=== PATIENT | female | born 1955 | race Caucasian/White ===

== ENCOUNTER → 2017-12-01 | Outpatient (CLI) | payer OTHER | LOC: RAD 14:35 | DX: S93.402A Sprain of unspecified ligament of left ankle, initial encounter (principal) ==

== ENCOUNTER → 2018-01-22 | Outpatient (CLI) | payer OTHER | LOC: MAMMO 09:15 | DX: Z12.31 Encounter for screening mammogram for malignant neoplasm of breast (principal); R92.1 Mammographic calcification found on diagnostic imaging of breast; Z98.890 Other specified postprocedural states ==

== ENCOUNTER → 2018-02-14 | Outpatient (CLI) | payer MEDICARE | LOC: RAD 16:34 | DX: I07.1 Rheumatic tricuspid insufficiency (principal); I27.0 Primary pulmonary hypertension ==

== ENCOUNTER 2018-05-19 13:55 | Emergency (ER) | payer MEDICARE, OTHER ==
[~2018-05-19] VITALS: Ht 165.1 cm; Wt 63.6 kg
[2018-05-19 14:44] LABS: HEMATOCRIT 38.2 % (37.0-47.0); MEAN CELL VOLUME 88 fl (78-100); MEAN CORPUSCULAR HEMOGLOBIN 30 pg (27-31); MEAN CORPUSCULAR HGB CONC 34 g/dL (33-37); MEAN PLATELET VOLUME 11.2 fl (7.4-10.4); PLATELET COUNT 263 K/mm3 (130-400); RED BLOOD COUNT 4.36 M/mm3 (4.10-5.30); RED CELL DISTRIBUTION WIDTH 13.1 % (11.5-14.5); WHITE BLOOD COUNT 15.9 K/mm3 (4.8-10.8)
[2018-05-19] MEDS ORDERED: METOPROLOL SUC100 M1 PO (14:45)
[2018-05-19] MEDS ORDERED: AMLODIPINE BESYL5 MG PO (14:45)
[2018-05-19] MEDS ORDERED: APRESOLINE 25MG25 MG PO (14:45)
[2018-05-19] MEDS ORDERED: PANTOPRAZOLE SO40 MG PO (14:46)
[2018-05-19] MEDS ORDERED: ATORVASTATIN CA40 MG PO (14:46)
[2018-05-19] MEDS ORDERED: SERTRALINE HYD100 MG PO (14:46)
[2018-05-19] MEDS ORDERED: ASPIRIN ADULT L81 M3 PO (14:47)
[2018-05-19 15:09] LABS: CALCIUM 9.3 mg/dL (8.4-10.2)
[2018-05-19 15:14] LABS: NEUTROPHILS 87 % (42-75); POTASSIUM 3.4 mmol/L (3.6-5.0)
[2018-05-19 15:15] LABS: LYMPHOCYTE 4 % (20-51); MONOCYTE 8 % (3-10)
[2018-05-19] MEDS ORDERED: PREDNISONE20 M1 PO (15:52)
[2018-05-19] MEDS ORDERED: POTASSIUM CHLO10 ME7 PO (15:52)
[2018-05-19] MEDS ORDERED: ZITHROMAX 250M250 MG PO (15:52)
[2018-05-19] MEDS ORDERED: GUAIFEN-CODEINE5 ML PO (15:52)
[2018-05-19 15:57] VITALS: BP 168/98
== END 2018-05-19 16:04 | disposition home or self-care (01) ==
LOC: ED 13:55
PROVIDERS: Family Medicine
DX: J44.1 Chronic obstructive pulmonary disease with (acute) exacerbation (principal); E87.6 Hypokalemia; I12.9 Hypertensive chronic kidney disease with stage 1 through stage 4 chronic kidney disease, or unspecified chronic kidney disease; N18.9 Chronic kidney disease, unspecified; F17.200 Nicotine dependence, unspecified, uncomplicated; Z79.899 Other long term (current) drug therapy; Z91.19 Patient's noncompliance with other medical treatment and regimen; K21.9 Gastro-esophageal reflux disease without esophagitis
CPT/HCPCS: J7512

== ENCOUNTER 2019-05-11 10:47 | Emergency (ER) | payer MEDICARE, OTHER ==
[~2019-05-11] VITALS: Ht 165.1 cm; Wt 69.1 kg
[~2019-05-11 10:47] MED LIST: AMLODIPINE BESYL5 MG PO; APRESOLINE 25MG25 MG PO; ASPIRIN ADULT L81 M3 PO; ATORVASTATIN CA40 MG PO; GUAIFEN-CODEINE5 ML PO; METOPROLOL SUC100 M1 PO; PANTOPRAZOLE SO40 MG PO; POTASSIUM CHLO10 ME7 PO; PREDNISONE20 M1 PO; SERTRALINE HYD100 MG PO; ZITHROMAX 250M250 MG PO
[2019-05-11] MEDS ORDERED: HYDROXYZINE HCL25 M1 PO (10:58)
[2019-05-11 12:06] VITALS: BP 149/88
[2019-05-11] MEDS ORDERED: NORCO 7.5-3251 EACH PO (12:31)
== END 2019-05-11 12:40 | disposition home or self-care (01) ==
LOC: ED 10:47
DX: S52.572A Other intraarticular fracture of lower end of left radius, initial encounter for closed fracture (principal); I10 Essential (primary) hypertension; F32.9 Major depressive disorder, single episode, unspecified; E78.5 Hyperlipidemia, unspecified; W19.XXXA Unspecified fall, initial encounter
CPT/HCPCS: J2270

== ENCOUNTER 2019-11-24 17:15 | Emergency (ER) | payer MEDICARE, OTHER ==
[~2019-11-24] VITALS: Ht 165.1 cm; Wt 70.3 kg
[~2019-11-24 17:15] MED LIST changes: +HYDROXYZINE HCL25 M1 PO; +NORCO 7.5-3251 EACH PO
[2019-11-24] MEDS ORDERED: ZOLOFT 100MG100 MG PO (17:43)
[2019-11-24] MEDS ORDERED: ASPIRIN 32325 MG/TAB PO (17:46)
[2019-11-24] MEDS ORDERED: KLONOPIN 1MG1 MG PO (17:46)
[2019-11-24 19:22] VITALS: BP 180/92
== END 2019-11-24 19:22 | disposition home or self-care (01) ==
LOC: ED 17:15
DX: M79.18 Myalgia, other site (principal); M54.10 Radiculopathy, site unspecified; I10 Essential (primary) hypertension; F41.9 Anxiety disorder, unspecified; K21.9 Gastro-esophageal reflux disease without esophagitis; F17.210 Nicotine dependence, cigarettes, uncomplicated; Z79.82 Long term (current) use of aspirin
CPT/HCPCS: J3301; J3360

== ENCOUNTER → 2020-09-21 | Outpatient (CLI) | payer MEDICARE, OTHER ==
[~2020-09-21] MED LIST changes: +ASPIRIN 32325 MG/TAB PO; +FIORICET 325 MG1 TAB PO; +KLONOPIN 1MG1 MG PO; +ZOLOFT 100MG100 MG PO
== END | disposition still patient (30) ==
LOC: PT 07:55
DX: M25.512 Pain in left shoulder (principal)

== ENCOUNTER 2020-10-01 10:41 | Outpatient (RCR) | payer MEDICARE, OTHER ==
[~2020-10-01 10:41] MED LIST changes: -FIORICET 325 MG1 TAB PO
== END 2020-12-30 | disposition home or self-care (01) ==
LOC: PT
DX: Z96.611 Presence of right artificial shoulder joint (principal)

== ENCOUNTER 2021-02-03 10:54 | Outpatient (RCR) | payer MEDICARE, OTHER ==
[2021-03-05] MEDS ORDERED: FIORICET 325 MG1 TAB PO (12:01)
== END 2021-05-04 | disposition home or self-care (01) ==
LOC: PT
DX: M48.061 Spinal stenosis, lumbar region without neurogenic claudication (principal)

== ENCOUNTER 2021-03-05 11:00 | Emergency (ER) | payer MEDICARE, OTHER ==
[~2021-03-05] VITALS: Ht 162.6 cm; Wt 72.6 kg
[2021-03-05] MEDS ORDERED: FIORICET 325 MG1 TAB PO (12:01)
[2021-03-05 12:26] VITALS: BP 152/83
== END 2021-03-05 12:26 | disposition home or self-care (01) ==
LOC: ED 11:00
DX: G97.1 Other reaction to spinal and lumbar puncture (principal); R51.9 Headache, unspecified; N18.9 Chronic kidney disease, unspecified; F17.210 Nicotine dependence, cigarettes, uncomplicated; Z86.69 Personal history of other diseases of the nervous system and sense organs; Z88.6 Allergy status to analgesic agent; Z79.1 Long term (current) use of non-steroidal anti-inflammatories (NSAID)

== ENCOUNTER → 2021-06-11 | Outpatient (CLI) | payer MEDICARE, OTHER ==
[~2021-06-11] MED LIST changes: +FIORICET 325 MG1 TAB PO
== END ==
LOC: RAD 11:12
DX: M25.532 Pain in left wrist (principal); W19.XXXA Unspecified fall, initial encounter

== ENCOUNTER 2021-07-28 10:44 | Outpatient (RCR) | payer MEDICARE, OTHER | END 2021-08-25 14:15 | disposition home or self-care (01) | LOC: OT 10:44 | DX: S52.572D Other intraarticular fracture of lower end of left radius, subsequent encounter for closed fracture with routine healing (principal); X58.XXXD Exposure to other specified factors, subsequent encounter ==

== ENCOUNTER 2021-11-21 09:41 | Emergency (ER) | payer MEDICARE, OTHER ==
[~2021-11-21] VITALS: Ht 165.1 cm; Wt 72.6 kg
[2021-11-21] MEDS ORDERED: METOPROLOL SUCC50 M1 PO (11:47)
[2021-11-21] MEDS ORDERED: PERCOCET 325 MG1 TA3 PO (12:11)
[2021-11-21 12:18] VITALS: BP 177/102
== END 2021-11-21 12:18 | disposition home or self-care (01) ==
LOC: ED 09:41
DX: S32.028A Other fracture of second lumbar vertebra, initial encounter for closed fracture (principal); F17.210 Nicotine dependence, cigarettes, uncomplicated; Z28.310 Unvaccinated for COVID-19; W01.0XXA Fall on same level from slipping, tripping and stumbling without subsequent striking against object, initial encounter

== ENCOUNTER 2021-12-27 10:58 | Emergency (ER) | payer MEDICARE, OTHER ==
[~2021-12-27] VITALS: Ht 160 cm; Wt 64.2 kg
[~2021-12-27 10:58] MED LIST changes: +METOPROLOL SUCC50 M1 PO; +PERCOCET 325 MG1 TA3 PO
[2021-12-27] MEDS ORDERED: OXYCODONE-ACET1 EAC1 PO (11:36)
[2021-12-27 11:51] LABS: BASO # 0.01 K/mm3 (0.02-0.10); EOS # 0.01 K/mm3 (0.04-0.40); EOS % 0.2 % (1.0-5.0); HEMOGLOBIN 15.7 g/dL (12.5-16.0); LYMPH# 0.62 K/mm3 (1.50-4.00); MEAN CELL VOLUME 91 fl (78-100); MEAN CORPUSCULAR HEMOGLOBIN 30 pg (27-31); MEAN CORPUSCULAR HGB CONC 33 g/dL (33-37); MEAN PLATELET VOLUME 11.4 fl (7.4-10.4); MONO # 0.43 K/mm3 (0.20-0.80); PLATELET COUNT 125 K/mm3 (130-400); RED CELL DISTRIBUTION WIDTH 12.8 % (11.5-14.5)
[2021-12-27 11:57] LABS: ALBUMIN 4.4 g/dL (3.4-4.8)
[2021-12-27 11:58] LABS: CALCIUM 9.5 mg/dL (8.3-10.5)
[2021-12-27 12:00] LABS: TOTAL PROTEIN 7.5 g/dL (6.2-8.1)
[2021-12-27 12:01] LABS: TOTAL BILIRUBIN 0.5 mg/dL (0.2-1.2)
[2021-12-27] MEDS ORDERED: ZOFRAN ODT4 MG PO (12:42)
[2021-12-27 13:32] LABS: URINE APPEARANCE HAZY; URINE COLOR YELLOW; URINE GLUCOSE NEGATIVE (NEGATIVE); URINE PROTEIN(semi-quant) 3+ (NEGATIVE)
[2021-12-27 13:33] LABS: URINE BILIRUBIN 2+ (NEGATIVE); URINE BLOOD 50 ery/uL (NEGATIVE); URINE KETONE NEGATIVE (NEGATIVE); URINE LEUKOCYTE ESTERASE NEGATIVE (NEGATIVE); URINE NITRATE NEGATIVE (NEGATIVE); URINE UROBILINOGEN NORMAL (NORMAL); URINE WBC 0-1 /hpf (0-3)
[2021-12-27 14:00] VITALS: BP 124/78
== END 2021-12-27 14:00 | disposition home or self-care (01) ==
LOC: ED 10:58
PROVIDERS: Physician Assistant
DX: U07.1 COVID-19 (principal); J44.9 Chronic obstructive pulmonary disease, unspecified; I12.9 Hypertensive chronic kidney disease with stage 1 through stage 4 chronic kidney disease, or unspecified chronic kidney disease; N18.9 Chronic kidney disease, unspecified; E86.0 Dehydration
CPT/HCPCS: J2405; J7030

== ENCOUNTER → 2023-06-06 | Outpatient (CLI) | payer MEDICARE, OTHER ==
[~2023-06-06] MED LIST changes: +OXYCODONE-ACET1 EAC1 PO; +ZOFRAN ODT4 MG PO
== END ==
LOC: RAD 10:00
DX: N18.4 Chronic kidney disease, stage 4 (severe) (principal)

== ENCOUNTER → 2024-01-18 | Outpatient (CLI) | payer MEDICARE, OTHER ==
[~2024-01-18] MED LIST changes: +VARENICLINE TART1 MG PO
[2024-01-18 14:33] LABS: URINE APPEARANCE SLIGHTLY CLOUDY (CLEAR); URINE COLOR YELLOW (YELLOW)
[2024-01-18 14:34] LABS: URINE BILIRUBIN NEGATIVE (NEGATIVE); URINE BLOOD 2+ (NEGATIVE); URINE GLUCOSE NEGATIVE (NEGATIVE); URINE KETONE NEGATIVE (NEGATIVE); URINE LEUKOCYTE ESTERASE 2+ (NEGATIVE); URINE NITRATE NEGATIVE (NEGATIVE); URINE PROTEIN(semi-quant) 2+ (NEGATIVE); URINE WBC >50 /hpf (0-3)
== END ==
LOC: LAB 14:12
PROVIDERS: Registered Nurse
DX: Z01.89 Encounter for other specified special examinations (principal)

== ENCOUNTER 2024-01-19 12:55 | Emergency (ER) | payer MEDICARE, OTHER ==
[~2024-01-19] VITALS: Ht 165.1 cm; Wt 59.6 kg
[~2024-01-19 12:55] MED LIST changes: -VARENICLINE TART1 MG PO
[2024-01-19 13:35] LABS: BASO # 0.01 K/mm3 (0.02-0.10); EOS # 0.19 K/mm3 (0.04-0.40); EOS % 2.5 % (1.0-5.0); HEMATOCRIT 34.7 % (37.0-47.0); HEMOGLOBIN 11.3 g/dL (12.5-16.0); LYMPH# 0.71 K/mm3 (1.50-4.00); MEAN CELL VOLUME 94 fl (78-100); MEAN CORPUSCULAR HEMOGLOBIN 31 pg (27-31); MEAN CORPUSCULAR HGB CONC 33 g/dL (33-37); MEAN PLATELET VOLUME 10.2 fl (7.4-10.4); MONO # 0.43 K/mm3 (0.20-0.80); NEU # 6.14 K/mm3 (1.40-6.50); PLATELET COUNT 190 K/mm3 (130-400); RED BLOOD COUNT 3.68 M/mm3 (4.10-5.30); RED CELL DISTRIBUTION WIDTH 12.9 % (11.5-14.5); WHITE BLOOD COUNT 7.5 K/mm3 (4.8-10.8)
[2024-01-19 13:45] LABS: ALBUMIN 3.5 g/dL (3.4-4.8); CALCIUM 9.1 mg/dL (8.3-10.5)
[2024-01-19 13:48] LABS: TOTAL PROTEIN 5.8 g/dL (6.2-8.1)
[2024-01-19 13:49] LABS: TOTAL BILIRUBIN 0.4 mg/dL (0.2-1.2)
[2024-01-19 13:51] LABS: URINE WBC 0 /hpf (0-3)
[2024-01-19 14:11] LABS: URINE APPEARANCE CLEAR (CLEAR); URINE BILIRUBIN NEGATIVE (NEGATIVE); URINE COLOR YELLOW (YELLOW); URINE GLUCOSE NEGATIVE (NEGATIVE); URINE KETONE NEGATIVE (NEGATIVE); URINE NITRATE NEGATIVE (NEGATIVE)
[2024-01-19 14:12] LABS: URINE BLOOD 1+ (NEGATIVE); URINE LEUKOCYTE ESTERASE NEGATIVE (NEGATIVE); URINE PROTEIN(semi-quant) 3+ (NEGATIVE)
[2024-01-19] MEDS ORDERED: NS 500 ML IV SCH (14:45)
[2024-01-19] MEDS ORDERED: VARENICLINE TART1 MG PO (15:13)
[2024-01-19 17:21] VITALS: BP 174/87
== END 2024-01-19 17:12 | disposition home or self-care (01) ==
LOC: ED 12:55
PROVIDERS: Family Medicine
DX: E86.0 Dehydration (principal); I12.0 Hypertensive chronic kidney disease with stage 5 chronic kidney disease or end stage renal disease; N18.6 End stage renal disease; R11.2 Nausea with vomiting, unspecified; F17.210 Nicotine dependence, cigarettes, uncomplicated; Z99.2 Dependence on renal dialysis
CPT/HCPCS: J7040

== ENCOUNTER 2024-03-25 11:00 | Outpatient (RCR) | payer MEDICARE, OTHER ==
[~2024-03-25 11:00] MED LIST changes: +VARENICLINE TART1 MG PO
== END 2024-03-27 | disposition home or self-care (01) ==
LOC: CARDREHAB
DX: I36.1 Nonrheumatic tricuspid (valve) insufficiency (principal); Z95.2 Presence of prosthetic heart valve

== ENCOUNTER 2024-03-31 08:28 | Outpatient (RCR) | payer MEDICARE, OTHER | END 2024-04-26 | disposition home or self-care (01) | LOC: CARDREHAB | DX: Z48.812 Encounter for surgical aftercare following surgery on the circulatory system (principal); Z98.890 Other specified postprocedural states; I36.1 Nonrheumatic tricuspid (valve) insufficiency ==

== ENCOUNTER 2024-04-29 08:00 | Outpatient (RCR) | payer MEDICARE, OTHER | END 2024-05-27 | disposition home or self-care (01) | LOC: CARDREHAB | DX: Z48.812 Encounter for surgical aftercare following surgery on the circulatory system (principal); Z98.890 Other specified postprocedural states; I36.1 Nonrheumatic tricuspid (valve) insufficiency ==